=== PATIENT | female | born 1960 | race Caucasian/White ===

== ENCOUNTER 2017-05-23 08:16 | Day surgery (SDC) | payer OTHER ==
[~2017-05-23 08:16] MED LIST: CEFAZOLIN 2 GM/50 ML (PMX) 50 ML IVPB; SOD CHLORIDE 0.9% 1,000 ML IV
[2017-05-23] MEDS ORDERED: DIPHENHYDRAMINE 50 MG INJ IV (13:00)
[2017-05-23] MEDS ORDERED: OXYCODONE/ACETAMINOPHEN (5/325) TAB PO (13:00)
[2017-05-23] MEDS ORDERED: EPHEDrine SULFATE 50 MG/5 ML SYG IV (13:00)
[2017-05-23] MEDS ORDERED: PROCHLORPERAZINE 10 MG INJ IV (13:00)
[2017-05-23] MEDS ORDERED: FENTAnyl 50 MCG/ML VIAL IV ×3 (13:00)
[2017-05-23] MEDS ORDERED: HYDROmorphONE (0.2 MG/ML) 10ML SYG IV ×3 (13:00)
[2017-05-23] MEDS ORDERED: ONDANSETRON 4 MG INJ IV (13:00)
[2017-05-23] MEDS ORDERED: hydrALAzine 20 MG INJ IV (13:00)
[2017-05-23] MEDS ORDERED: MEPERIDINE 25 MG INJ IV (13:00)
[2017-05-23] MEDS ORDERED: LABETALOL HCL 20MG INJ IV (13:00)
[2017-05-23] MEDS ORDERED: PROPOFOL 20 ML (13:11)
[2017-05-23] MEDS ORDERED: LIDOCAINE 2% (SDV) 5 ML INJ (13:11)
[2017-05-23] MEDS ORDERED: MIDAZOLAM 1 MG/ML 2 ML INJ (13:11)
[2017-05-23] MEDS ORDERED: FAMOTIDINE 20 MG INJ (13:21)
[2017-05-23] MEDS ORDERED: DEXAMETHASONE 4 MG/ML 1 ML INJ (13:21)
[2017-05-23] MEDS ORDERED: FENTAnyl 50 MCG/ML VIAL (13:21)
[2017-05-23] MEDS ORDERED: METOCLOPRAMIDE 10 MG INJ (13:21)
[2017-05-23] MEDS ORDERED: ONDANSETRON 4 MG INJ (13:21)
[2017-05-23] MEDS ORDERED: CEFAZOLIN 1 GM INJ (13:24)
[2017-05-23] MEDS ORDERED: EPHEDrine SULFATE 50 MG/5 ML SYG (13:25)
[2017-05-23] MEDS ORDERED: ACETAMINOPHEN 1000MG/100ML IV 100 ML (13:34)
[2017-05-23] MEDS: BUPIVACAINE 0.25% (MPF) 30 ML INJ (13:36)
[2017-05-23] MEDS ORDERED: KETOROLAC 30 MG INJ (13:56)
[2017-05-23] MEDS ORDERED: HYDROCODONE/APAP (5/325) TAB PO (14:30)
== END 2017-05-23 16:00 | disposition home or self-care (01) ==
LOC: SDS 08:16
DX: N60.21 Fibroadenosis of right breast (principal); N60.11 Diffuse cystic mastopathy of right breast; E03.9 Hypothyroidism, unspecified
CPT/HCPCS: 19301; 88307